=== PATIENT | female | born 1945 | race African-American/Black ===

== ENCOUNTER 2019-04-16 05:47 | Inpatient (IN) | payer OTHER, MEDICARE ==
[2019-04-09 09:31] VITALS: BMI 45.5
[2019-04-16] MEDS ORDERED: TRANEXAMIC ACID 1000 MG/10 ML VIAL IVPUSH ONE (06:32)
[2019-04-16] MEDS ORDERED: CEFAZOLIN 2 GM in DEXTROSE 5%-WATER - 50 ML IVPB ONE (06:32)
[2019-04-16] MEDS ORDERED: CELECOXIB 200 MG CAPSULE PO ONE (06:32)
[2019-04-16] MEDS ORDERED: GABAPENTIN 300 MG CAPSULE (FP) PO ONE (06:32)
[2019-04-16] MEDS ORDERED: oxyCODONE HCL 10 MG SUSTAINED ACTING TABLET PO ONE (06:32)
[2019-04-16] MEDS ORDERED: ceFAZolin SODIUM 1 GM VIAL ONE ×2 (07:11→08:40)
[2019-04-16] MEDS ORDERED: VANCOMYCIN 1,000 MG VIAL (RESTRICTED TO ID ONLY) ONE (07:11)
[2019-04-16] MEDS ORDERED: MIDAZOLAM HCL 2 MG/2 ML SINGLE DOSE VIAL ONE (07:20)
[2019-04-16] MEDS ORDERED: BUPIVACAINE LIPOSOME/PF (EXPAREL) 266 MG/20 ML VIAL ONE (07:21)
[2019-04-16] MEDS ORDERED: MAGNESIUM HYDROX 2400MG/30ML ORAL SUSPENSION 30 ML CUP PO PRN (07:52)
[2019-04-16] MEDS ORDERED: ONDANSETRON 4 MG/2 ML VIAL IVPUSH PRN ×2 (07:52→10:36)
[2019-04-16] MEDS ORDERED: MAG HYDROX/AL HYDROX/SIMETH 30 ML UNIT-DOSE CUP PO PRN (07:52)
--- NOTE | 2019-04-16 07:52 | HP ---
Satellite [facility] - Chief Complaint Chief Complaint: right knee pain - Past Medical History Allergies/Adverse Reactions: Allergies Allergy/AdvReac Type Severity Reaction Status Date / Time No Known Drug Allergies Allergy Verified 04/09/19 09:19 - Current Medications Current Medications: Home Medications Medication Instructions Recorded Atorvastatin Ca [Lipitor] 40 mg PO DAILY 03/17/19 Enalapril Maleate [Vasotec] 40 mg PO BID 03/17/19 Ferrous Sulfate [Feosol] 325 mg PO DAILY 03/17/19 Labetalol HCl 100 mg PO BID 03/17/19 Nifedipine [Nifedipine ER] 90 mg PO DAILY 03/17/19 Aspirin [ASA -] 81 mg PO DAILY 04/09/19 Satellite Physical Exam - Physical Examination Vital Signs: Vital Signs Period Temp Pulse Resp BP Sys/Hoover Pulse Ox Last 24 Hr 98.2 F 60 18 119/58 General Appearance: Well Nourished, Well Developed, Alert & Oriented x3 ENT: Clear Lung: Normal air movement Heart: Regular rate & rhythm Extremities: Other (right knee- + swelling, + ttp ,decr rom, nvi, xrays show grade 4 tricompartmental djd) Neurological: Intact, Alert, Oriented Satellite Impression/Plan - Impression/Plan Impression: right knee djd Operative Procedure: right annemarie tkr Date to be Performed: 04/16/19
[2019-04-16] MEDS ORDERED: BUPIVACAINE HCL/PF 0.5% (5MG/ML) 10 ML VIAL ONE (07:58)
[2019-04-16] MEDS ORDERED: LACTATED RINGERS SOLUTION 1,000 ML IV SCH ×2 (08:00→10:45)
[2019-04-16] MEDS ORDERED: VANCOMYCIN 1,000 MG VIAL (RESTRICTED TO ID ONLY) IVPB ONE (09:56)
[2019-04-16] MEDS ORDERED: TRANEXAMIC ACID 1000 MG/10 ML VIAL ONE (09:57)
[2019-04-16] MEDS ORDERED: ATORVASTATIN CA 40 MG TABLET (FP) PO SCH (10:00)
[2019-04-16] MEDS ORDERED: ENALAPRIL MALEATE 40 MG PO SCH (10:00)
--- NOTE | 2019-04-16 10:26 | OP ---
Operative Note - Note: Operative Date: 04/16/19 (juanita) Pre-Operative Diagnosis: right knee djd Operation: right annemarie tkr Post-Operative Diagnosis: Same as Pre-op Surgeon: Desean Morris Silver Plater: Madan Bravo Anesthesiologist/DX BOARD OPERATOR: Carla Serra Anesthesia: Spinal, Local Specimens Removed: bone fragments Estimated Blood Loss (mls): 150 Operative Report Dictated: Yes
[2019-04-16] MEDS ORDERED: ACETAMINOPHEN 1000 MG/100 ML VIAL (NON FORMULARY) IVPB ONE (10:36)
[2019-04-16] MEDS ORDERED: oxyCODONE HCL 5 MG TABLET PO PRN (10:36)
[2019-04-16] MEDS ORDERED: ONDANSETRON 4 MG/2 ML VIAL ONE (11:10)
[2019-04-16] MEDS ORDERED: ACETAMINOPHEN INJECTION 100 ML IVPB ONE (11:10)
[2019-04-16] MEDS: oxyCODONE HCL 5 MG TABLET PO PRN ×2 (11:30→21:55)
[2019-04-16] MEDS ORDERED: oxyCODONE HCL 5 MG TABLET ONE (11:32)
[2019-04-16] MEDS: CEFAZOLIN 2 GM/D5W 2 GM/50 ML ML IVPB SCH ×2 (16:00→23:57)
[2019-04-16] MEDS: PANTOPRAZOLE 40 MG TABLET (FP) PO SCH (17:35)
[2019-04-16] MEDS: GABAPENTIN 300 MG CAPSULE (FP) PO SCH (21:54)
[2019-04-16] MEDS: ENALAPRIL MALEATE 10 MG TABLET (FP) PO SCH (21:54)
[2019-04-16] MEDS: SENNOSIDES/DOCUSATE COMBO (SENNA PLUS) TABLET (UD) PO SCH (21:54)
[2019-04-16] MEDS: oxyCODONE HCL 10 MG SUSTAINED ACTING TABLET PO SCH (21:55)
[2019-04-16] MEDS: LABETALOL HCL 100 MG TABLET (FP) PO SCH (21:55)
--- NOTE | 2019-04-17 03:47 | SPEC ---
DATE OF OPERATION: 04/16/2019 PREOPERATIVE DIAGNOSIS: Degenerative joint disease, right knee. POSTOPERATIVE DIAGNOSIS: Degenerative joint disease, right knee. PROCEDURE: Right total knee replacement with robotic-assisted navigation (MAKOplasty). SURGICAL ATTENDING: Desean Morris MD SUPPORT TEACHER: PRIYANKA De La Torre ANESTHESIA: Regional and spinal. CLOSURE: A 1 femur, a 1 tibia, a 13 polyethylene, a 29 patella, number 1 Vicryl fascia, 0 and 2-0 subcutaneous, 3-0 Monocryl subcuticular with skin glue for skin, 4-0 undyed Vicryl for pin sites. ESTIMATED BLOOD LOSS: Negligible. TOURNIQUET TIME: Approximately 1/2 hour. COMPLICATIONS: None. CONDITION: To recovery room in stable condition. DESCRIPTION OF OPERATIVE PROCEDURE: Patient was taken to the operating room on April 16, 2019. Regional and general anesthesia was administered by the anesthesiologist. IV Kefzol and TXA were administered by the anesthesiologist. Well-padded pneumatic tourniquet was placed on the proximal thigh. The right lower extremity was prepped and draped in the usual sterile fashion. The leg was exsanguinated with an Esmarch bandage, and tourniquet was inflated to 275 mmHg. A 12- to 15-cm longitudinal midline incision was incised while centered over the patella. The dissection was carried down to the level of the extensor mechanism with sufficient flaps made to adequately perform the procedure. A medial parapatellar arthrotomy was then performed. We made a cuff of tissue on the patella for later closure. The patella was inverted, the knee was flexed up. The fat pad was excised. The subperiosteal dissection was on the anteromedial proximal tibia around towards the direction of the MCL. The ACL and the PCL were transected and debrided. The meniscal remnants of the medial and lateral meniscus were debrided and removed. This allowed the knee to be able to "be brought forward." The checkpoints were malleted into the tibia and into the femur. Two threaded pins were drilled anteroposteriorly proximal to the knee through the previous incision, through the anterior cortex, then just engaging the posterior cortex. To these pins was assembled the femoral navigation array. One handbreadth below the tibial tubercle, 2 stab incisions were used to drill 2 threaded pins in parallel fashion into the tibia, again through the anterior cortex and just engaging the posterior cortex. To these pins were fastened the tibial arrays. The knee was then registered with the navigation device with center of rotation of the hip, medial and lateral malleoli, both checkpoints, and multiple points on both the femur and the tibia to ensure excellent registration. The navigation device was directed off the "top of the bubbles" on both the femur and the tibia. The navigation passed within less than 0.5 mm to plan. The knee was then thoroughly inspected to remove all osteophytes both medially, laterally, and on the femur and the tibia, and whatever osteophytes were available for dissection. The knee was then taken to extension and to flexion and stressed in both varus and valgus to assess flexion gaps. The virtual position of the components on the navigation device were then manipulated to optimize the position and to ensure equal gaps in both flexion and extension, both medially and laterally. The robot was then brought into the field and was registered. The cuts were then made both on the femur and on the tibia as to plan. All osteophytes posteriorly were then removed as well. The gaps were then measured again in flexion and extension to be equal in both flexion and extension and medial and laterally. The femoral notch was then made, as we were doing a posterior stabilizing component, with the appropriate sized box. Trial reduction of the femur achieved excellent [id number] fit. A tibial baseplate of appropriate polyethylene thickness was "floated in the knee." It was ensured to be in the excellent position by navigation devices and was pinned in place. The knee was taken through a range of motion, and found to have excellent stability throughout flexion and extension. The patella was calibrated for thickness and osteotomized down to the appropriate level. The appropriate lollipop was used to drill the lug holes in the patella and the trial button was applied. The knee was taken through a range of motion and found to have excellent tracking of the patella, and patella from full extension to full flexion. Trial components were removed, the keel was punched and drilled, and a sclerotic bone on the tibia was drilled to help with cement interdigitation. The knee was thoroughly irrigated with the pulse antibiotic wildlife protector. The real components were then cemented in using monitored arrangement cement techniques with antibiotic cement, and pressurization and extension. After the cement was hardened, the knee was thoroughly inspected to remove any extra cement. The real polyethylene component was then clipped into place. Range of motion, stability, and tracking were as described earlier. The checkpoints and the pins were removed. The knee was thoroughly irrigated with antibiotic irrigation. Vancomycin powder was placed into the knee for antibiotic prophylaxis. The medial parapatellar arthrotomy was then closed using number 1 Vicryl interrupted suture. After closure of the deep layer, the knee was taken through a range of motion, and found to have excellent stability of the patella with no dislocation and no undue tension on the repair. The subcutaneous was pulse antibiotic irrigated and was then closed with 2-0 Vicryl, 3-0 Monocryl subcuticular with the skin glue for the skin. The distal tibial pin site was irrigated thoroughly as well and then closed with 4-0 undyed Vicryl. A sterile Aquacel dressing was applied, followed by a Crews dressing. Tourniquet was deflated. Total tourniquet time was approximately 75 minutes. No complications. Patient was awakened from anesthesia and transferred to recovery room in stable condition. Postoperative x-rays revealed excellent position of the components. Lucero [id number]
[2019-04-17] MEDS: ASPIRIN 325 MG TABLET PO SCH (07:59)
[2019-04-17] MEDS: oxyCODONE HCL 5 MG TABLET PO PRN (07:59)
[2019-04-17] MEDS ORDERED: ACETAMINOPHEN 325 MG TABLET (FP) PO PRN (08:12)
[2019-04-17 08:37] LABS: HEMATOCRIT 34.7 % (32.4-45.2); HEMOGLOBIN 11.1 GM/dl (10.7-15.3); MCH 27.4 pg (25.7-33.7); MCHC 31.8 g/dl (32.0-36.0); MEAN CELL VOLUME 86.1 fl (80-96); MEAN PLT VOLUME 8.7 fl (7.5-11.1); PLATELET COUNT 268 K/MM3 (134-434); RBC 4.03 M/mm3 (3.60-5.2); RDW 12.8 % (11.6-15.6); WHITE BLOOD COUNT 7.4 K/mm3 (4.0-10.8)
[2019-04-17] MEDS: GABAPENTIN 300 MG CAPSULE (FP) PO SCH ×2 (09:56→21:51)
[2019-04-17] MEDS: FERROUS SO4 325 MG TABLET (FP) PO SCH (09:56)
[2019-04-17] MEDS: SENNOSIDES/DOCUSATE COMBO (SENNA PLUS) TABLET (UD) PO SCH ×2 (09:57→21:51)
[2019-04-17] MEDS: MULTIVITAMINS (DAILY MVI) TABLET (FP) PO SCH (09:57)
[2019-04-17] MEDS: ATORVASTATIN CA 40 MG TABLET (FP) PO SCH (09:57)
[2019-04-17] MEDS: PANTOPRAZOLE 40 MG TABLET (FP) PO SCH (09:57)
--- NOTE | 2019-04-17 10:27 | PN ---
Progress Note, Physician Chief Complaint: CHART AND EVENTS REVIEWED POD #1 RIGHT KNEE DELON DENIES CP/SOB + APPETITE , NO BM TODAY - Current Medication List Current Medications: Active Medications Acetaminophen (Tylenol -) 650 mg PO Q6H PRN PRN Reason: FEVER Al Hydroxide/Mg Hydroxide (Mylanta Oral Suspension -) 30 ml PO Q4H PRN PRN Reason: DYSPEPSIA Aspirin (Asa -) 325 mg PO DAILY@0800 [facility] Last Admin: 04/17/19 07:59 Dose: 325 mg Atorvastatin Calcium (Lipitor -) 40 mg PO DAILY [facility] Last Admin: 04/17/19 09:57 Dose: 40 mg Enalapril Maleate (Vasotec -) 20 mg PO BID [facility] Last Admin: 04/16/19 21:54 Dose: 20 mg Fentanyl (Sublimaze Injection -) 50 mcg IVPUSH [id number] PRN PRN Reason: PAIN-PACU ORDER X 4 DOSES ONLY Last Admin: 04/16/19 11:08 Dose: 50 mcg Ferrous Sulfate (Feosol -) 325 mg PO DAILY [facility] Last Admin: 04/17/19 09:56 Dose: 325 mg Gabapentin (Neurontin -) 300 mg PO BID [facility] Last Admin: 04/17/19 09:56 Dose: 300 mg Lactated Ringer's (Lactated Ringers Solution) 1,000 mls @ 125 mls/hr IV ASDIR [facility] Labetalol HCl (Normodyne -) 100 mg PO BID [facility] Last Admin: 04/16/19 21:55 Dose: 100 mg Magnesium Hydroxide (Milk Of Magnesia -) 30 ml PO PRN PRN PRN Reason: CONSTIPATION Multivitamins/Minerals/Vitamin C (Tab-A-Vit -) 1 tab PO DAILY [facility] Last Admin: 04/17/19 09:57 Dose: 1 tab Nifedipine (Procardia Xl -) 90 mg PO DAILY [facility] Ondansetron HCl (Zofran Injection) 4 mg IVPUSH Q6H PRN PRN Reason: NAUSEA Ondansetron HCl (Zofran Injection) 4 mg IVPUSH Q6H PRN PRN Reason: NAUSEA AND/OR VOMITING Last Admin: 04/16/19 11:10 Dose: 4 mg Oxycodone HCl (Roxicodone -) 10 mg PO Q3H PRN PRN Reason: PAIN LEVEL 6-10 Oxycodone HCl (Roxicodone -) 5 mg PO Q3H PRN PRN Reason: PAIN LEVEL 1-5 Last Admin: 04/17/19 07:59 Dose: 5 mg Oxycodone HCl (Oxycontin -) 10 mg PO BID [facility] Stop: 04/19/19 10:37 Last Admin: 04/16/19 21:55 Dose: 10 mg Pantoprazole Sodium (Protonix -) 40 mg PO DAILY [facility] Last Admin: 04/17/19 09:57 Dose: 40 mg Senna/Docusate Sodium (Pericolace -) 2 tablet PO BID [facility] Last Admin: 04/17/19 09:57 Dose: 2 tablet - Objective Vital Signs: Vital Signs Temperature 98.2 F 04/17/19 09:03 Pulse Rate 74 04/17/19 09:03 Respiratory Rate 18 04/17/19 09:03 Blood Pressure 127/45 L 04/17/19 09:03 O2 Sat by Pulse Oximetry (%) 93 L 04/17/19 06:32 Constitutional: Yes: Mild Distress Eyes: Yes: WNL HENT: Yes: WNL Neck: Yes: WNL Cardiovascular: Yes: Regular Rate and Rhythm Respiratory: Yes: WNL Gastrointestinal: Yes: WNL Genitourinary: Yes: WNL Musculoskeletal: Yes: WNL, Joint Stiffness, Joint Swelling, Muscle Pain Extremities: Yes: Deformity Edema: Yes ...Motor Strength: RLE Psychiatric: Yes: WNL Labs: CBC, BMP 04/17/19 07:24 Problem List - Problems (1) Status post right knee replacement Code(s): Z96.651 - PRESENCE OF RIGHT ARTIFICIAL KNEE JOINT (2) HTN (hypertension) Code(s): I10 - ESSENTIAL (PRIMARY) HYPERTENSION (3) Obesity Code(s): E66.9 - OBESITY, UNSPECIFIED (4) Osteoarthritis Code(s): M19.90 - UNSPECIFIED OSTEOARTHRITIS, UNSPECIFIED SITE (5) Joint disease Code(s): M25.9 - JOINT DISORDER, UNSPECIFIED Assessment/Plan POD #1 RIGHT KNEE DELON PAIN CONTROL ON ASA 325MG DAILY GOT DVT PROPHYLAXIS OOB TO CHAIR CHECK LABS IN AM
[2019-04-17] MEDS: NIFEdipine E.R. 90 MG TABLET (FP) PO SCH (10:53)
[2019-04-17] MEDS: oxyCODONE HCL 10 MG SUSTAINED ACTING TABLET PO SCH ×2 (10:53→21:50)
[2019-04-17] MEDS: LABETALOL HCL 100 MG TABLET (FP) PO SCH ×2 (10:53→21:51)
[2019-04-17] MEDS: ENALAPRIL MALEATE 10 MG TABLET (FP) PO SCH ×2 (10:53→21:51)
[2019-04-18] MEDS: ASPIRIN 325 MG TABLET PO SCH (07:27)
--- NOTE | 2019-04-18 09:17 | DS ---
Physical Examination Vital Signs: Vital Signs Temperature 98.3 F 04/18/19 06:00 Pulse Rate 79 04/18/19 06:00 Respiratory Rate 18 04/18/19 06:00 Blood Pressure 115/43 L 04/18/19 06:00 O2 Sat by Pulse Oximetry (%) 95 04/18/19 01:41 Findings/Remarks: AWAKE ALERT COMFORTABLE Constitutional: Yes: No Distress Eyes: Yes: WNL HENT: Yes: WNL Neck: Yes: WNL Cardiovascular: Yes: Regular Rate and Rhythm Respiratory: Yes: WNL Gastrointestinal: Yes: WNL Musculoskeletal: Yes: Joint Swelling Extremities: Yes: WNL Edema: No Peripheral Pulses WNL: Yes Integumentary: Yes: WNL Wound/Incision: Yes: Dressing Dry and Intact Neurological: Yes: WNL ...Motor Strength: LLE, RLE Psychiatric: Yes: WNL Discharge Summary Reason For Visit: OSTEOARTHRITIS Current Active Problems HTN (hypertension) (Acute) Joint disease (Acute) Obesity (Acute) Osteoarthritis (Acute) Status post right knee replacement (Acute) Procedures: Principal: [facility] KNEE REPLACEMENT Hospital Course: RIGHT KNEE DELON, RECOVERING WELL, CAN F/U OUTPATIENT Condition: Good - Instructions Diet, Activity, Other Instructions: Post-op Instructions-Total Knee Replacement Call the office for a follow-up appointment in 1 week - [phone] Aspirin 325mg daily for 6 weeks. Pain medication was sent into your pharmacy. Apply Graduated Compression Stockings (TEDs) to both lower extremities- remove daily for hygiene ONLY Apply Sequential Compression Device (SCDs) to both Lower extremities remove for PT and hygiene ONLY Apply cold packs to affected area for 15 minutes every 2 hours. Physical Therapist will come to your home for the first 5 days. You will be set up with outpatient PT at your first post-operative visit. Patient may ambulate as tolerated-encourage self care (at least every 2-3 hours while awake) with walker or cane Maintain Aquacel (waterproof) dressing to operative wound (will be removed by surgeon at first office visit) Shower with Aquacel dressing in place-if Aquacel integrity compromised, remove and apply dry sterile dressing and notify Orthopedist. DO NOT SHOWER unless Orthopedists approves without Aquacel dressing CONTACT THE OFFICE FOR ANY CHANGE IN YOUR CONDITION (for example-fever greater than 102 degrees, excessive bleeding from operative site, purulent drainage, severe swelling or pain) GO TO THE EMERGENCY ROOM IF THERE IS A MEDICAL EMERGENCY Knee Precautions: * Keep a rolled towel under affected heel while in bed or chair (to keep knee in extension) * Keep affected leg elevated except during mealtimes * DO NOT PLACE PILLOW UNDER AFFECTED KNEE * If you have any questions, please do not hesitate to call the office - . Referrals: Desean Morris MD [Staff Physician] - Disposition: VNS/HOME HEALTH CARE - Home Medications Comprehensive Discharge Medication List: Ambulatory Orders Atorvastatin Ca [Lipitor] 40 mg PO DAILY 03/17/19 Enalapril Maleate [Vasotec] 40 mg PO BID 03/17/19 Ferrous Sulfate [Feosol] 325 mg PO DAILY 03/17/19 Labetalol HCl 100 mg PO BID 03/17/19 Nifedipine [Nifedipine ER] 90 mg PO DAILY 03/17/19 Aspirin [ASA -] 325 mg PO DAILY@0800 tablet 04/16/19 Oxycodone HCl/Acetaminophen [Percocet 5-325 mg Tablet -] 1 - 2 tab PO Q6H #50 tab MDD 8 04/16/19
[2019-04-18 09:19] LABS: HEMATOCRIT 32.5 % (32.4-45.2); HEMOGLOBIN 10.2 GM/dl (10.7-15.3); MCH 27.8 pg (25.7-33.7); MCHC 31.3 g/dl (32.0-36.0); MEAN CELL VOLUME 88.8 fl (80-96); PLATELET COUNT 262 K/MM3 (134-434); RBC 3.65 M/mm3 (3.60-5.2); WHITE BLOOD COUNT 9.4 K/mm3 (4.0-10.8)
[2019-04-18] MEDS: ATORVASTATIN CA 40 MG TABLET (FP) PO SCH (09:20)
[2019-04-18] MEDS: FERROUS SO4 325 MG TABLET (FP) PO SCH (09:20)
[2019-04-18] MEDS: oxyCODONE HCL 10 MG SUSTAINED ACTING TABLET PO SCH (09:20)
[2019-04-18] MEDS: GABAPENTIN 300 MG CAPSULE (FP) PO SCH (09:20)
[2019-04-18] MEDS: PANTOPRAZOLE 40 MG TABLET (FP) PO SCH (09:20)
[2019-04-18] MEDS: SENNOSIDES/DOCUSATE COMBO (SENNA PLUS) TABLET (UD) PO SCH (09:20)
[2019-04-18] MEDS: MULTIVITAMINS (DAILY MVI) TABLET (FP) PO SCH (09:20)
[2019-04-18 09:32] LABS: CALCIUM 8.3 mg/dl (8.5-10); CREATININE 1.3 mg/dl (0.55-1.3); POTASSIUM 4.7 mmol/L (3.5-5.1)
[2019-04-18] MEDS: NIFEdipine E.R. 90 MG TABLET (FP) PO SCH (14:11)
[2019-04-18] MEDS: ENALAPRIL MALEATE 10 MG TABLET (FP) PO SCH (14:11)
[2019-04-18] MEDS: LABETALOL HCL 100 MG TABLET (FP) PO SCH (14:11)
[2019-04-18 14:36] VITALS: BP 126/59; PULSE 75; TEMP 98.5
--- NOTE | 2019-04-21 16:13 | PATH ---
Surgical Pathology Report Patient Name: SANDRA HENSON Med. Rec. #: [id number] /Age/Gender: 1945 (Age: 73) / F Account: [id number] Location: [facility] MED-SURG Taken: 04/16/2019 Received: 04/16/2019 Reported: 04/21/2019 Physicians: Desean Morris M.D. Specimen(s) Received RIGHT KNEE BONES Clinical History Osteoarthritis right knee Final Diagnosis KNEE BONES, RIGHT, TOTAL HIP REPLACEMENT: DEGENERATIVE JOINT DISEASE. Electronically Signed Kathi Billingsley M.D. Gross Description Received in formalin labeled "right knee bones," is an 11.0 x 8.5 x 2.0 cm aggregate of multiple portions of bone and soft tissue. The tibial plateau measures 6.8 x 4.5 x 0.9 cm. There is a 2.0 cm in greatest dimension area of eburnation present. The remaining articular surfaces are mora-yellow and focally granular. The underlying trabecular bone is yellow and hard. Broomcorn Seeder sections are submitted in one cassette, following decalcification. 04/19/[address] [facility]04/19/2019
== END 2019-04-18 14:47 | disposition home health service (06) | DRG 470 ==
LOC: FM/S 05:47
PROVIDERS: ADMIT Orthopaedic Surgery; ATTEND Orthopaedic Surgery
PROC: 8E0Y0CZ Robotic Assisted Procedure of Lower Extremity, Open Approach (ICD-10-PCS; 2019-04-16)
PROC: 0SRC0J9 Replacement of Right Knee Joint with Synthetic Substitute, Cemented, Open Approach (ICD-10-PCS; principal; 2019-04-16 08:31)
DX: M17.11 Unilateral primary osteoarthritis, right knee (principal); Z68.42 Body mass index [BMI] 45.0-49.9, adult; I10 Essential (primary) hypertension; E66.9 Obesity, unspecified
CPT/HCPCS: 36415; 73560-TC-RT-FY; 80048; 85027; 88304-TC; 88311-TC; 94760; 97116-GP; 97162-GP; J0131

== ENCOUNTER 2019-05-26 13:02 | Observation (INO) | payer OTHER, MEDICARE ==
--- NOTE | 2019-05-26 13:15 | PDOC ---
Rapid Medical Evaluation Chief Complaint: Rash Time Seen by Provider: 05/26/19 13:07 Medical Evaluation: Allergies Allergy/AdvReac Type Severity Reaction Status Date / Time No Known Drug Allergies Allergy Verified 04/09/19 09:19 05/26/19 13:12 I have performed a brief in-person evaluation of this patient. The patient presents with a chief complaint of: s/p RT knee replacement, DM, HTN present with complains of 3 days h/o diffused non-itchy red rash , N/V, dizziness. Denies fever. pt does not know if her body is having reaction to foreign body from knee replacement Pertinent physical exam findings: diffused global erythematous macular rashes all over the body. no RT knee swelling or increased warmth. I have ordered the following: CBC, CMP, PT/PTT The patient will proceed to the ED for further evaluation. Discharge Disposition - Diagnosis Dizziness and giddiness, Rash - Discharge Dispostion Condition at time of disposition: Stable - Referrals Referrals: Clarissa Estrella FNP [Primary Care Provider] - - Patient Instructions - Post Discharge Activity
[2019-05-26 15:13] LABS: BASO % 0.4 % (0-2.0); EOS % 13.7 % (0-4.5); HEMATOCRIT 36.2 % (32.4-45.2); HEMOGLOBIN 11.7 GM/dL (10.7-15.3); LYMPH % 12.8 % (8-40); MCH 26.6 pg (25.7-33.7); MCHC 32.2 g/dl (32.0-36.0); MEAN CELL VOLUME 82.6 fl (80-96); MEAN PLT VOLUME 8.2 fl (7.5-11.1); MONO % 6.7 % (3.8-10.2); NEUT % 66.4 % (42.8-82.8); PLATELET COUNT 316 K/MM3 (134-434); RBC 4.38 M/mm3 (3.60-5.2); RDW 15.3 % (11.6-15.6); WHITE BLOOD COUNT 6.7 K/mm3 (4.0-10.0)
[2019-05-26] MEDS ORDERED: methylPREDNISolone NA SUCC 125 MG/2 ML VIAL IVPB ONE (15:24)
[2019-05-26 15:25] LABS: INR 1.21 (0.83-1.09); PROTHROMBIN TIME (PATIENT) 14.3 SEC (9.7-13.0)
[2019-05-26] MEDS ORDERED: methylPREDNISolone NA SUCC 125 MG/2 ML VIAL ONE (15:37)
[2019-05-26 15:48] LABS: BILIRUBIN,TOTAL 0.6 mg/dL (0.2-1); BLOOD UREA NITROGEN 14.8 mg/dL (7-18); CALCIUM 8.6 mg/dL (8.5-10.1); CREATININE 0.9 mg/dL (0.55-1.3); POTASSIUM 3.7 mmol/L (3.5-5.1); TOT PROT 7.7 g/dl (6.4-8.2)
--- NOTE | 2019-05-26 15:48 | PDOC ---
Documentation entered by Xuan Mendez SCRIBE, acting as scribe for Ravin Richardson MD. Ravin Richardson MD: This documentation has been prepared by the Vanessa saenz Sammi, SCRIBE, under my direction and personally reviewed by me in its entirety. I confirm that the documentation accurately reflects all work, treatment, procedures, and medical decision making performed by me. History of Present Illness - General Chief Complaint: Rash Stated Complaint: Allergic Reaction, dizziness, vomiting Time Seen by Provider: 05/26/19 13:07 History Source: Patient Exam Limitations: No Limitations - History of Present Illness Initial Comments: 05/26/19 15:05 The patient is a 73 year old female, with a significant PMH of HTN and high cholesterol, who presents to the emergency department for evaluation of a rash. Pt reports that she first noticed the rash 3 days ago. Denies itching or pain associated with the rash. Denies any blisters or ulcers. No lesions on her palms /soles/mouth. Pt reports that she has been on the same BP meds for months and denies any new meds. However, the patient states she picked up a refill of her labetalol 3 days ago and noticed it was a different brand from what she normally takes. Pt states that the rash started shortly after taking the new labetalol tablet.s Denies other new medications, foods, detergents, or soaps. Pt denies any lip or tongue swelling, denies N/V. Pt also endorses intermittent nausea for the past month. Denies vomiting. Denies abdominal pain. Denies CP. Denies diarrhea/constipation. Allergies: NKA Past History - Past Medical History Allergies/Adverse Reactions: Allergies Allergy/AdvReac Type Severity Reaction Status Date / Time No Known Drug Allergies Allergy Verified 05/26/19 13:12 Home Medications: Ambulatory Orders Atorvastatin Ca [Lipitor] 40 mg PO DAILY 03/17/19 Enalapril Maleate [Vasotec] 40 mg PO BID 03/17/19 Ferrous Sulfate [Feosol] 325 mg PO DAILY 03/17/19 Labetalol HCl 100 mg PO BID 03/17/19 Nifedipine [Nifedipine ER] 90 mg PO DAILY 03/17/19 Aspirin [ASA -] 325 mg PO DAILY@0800 tablet 04/16/19 Oxycodone HCl/Acetaminophen [Percocet 5-325 mg Tablet -] 1 - 2 tab PO Q6H #50 tab MDD 8 04/16/19 Oxycodone HCl [Oxycodone HCl ER] 10 mg PO BID #28 tab.er.12h MDD 2 04/18/19 Anemia: No Asthma: No Cancer: No Cardiac Disorders: No CVA: No COPD: No CHF: No Dementia: No Diabetes: Yes (pre) GI Disorders: No Disorders: No HTN: Yes Hypercholesterolemia: Yes Liver Disease: No Seizures: No Thyroid Disease: Yes (HYPERTHYROIDISM-05/2018 PARTIAL THYROIDECTOMY) Other medical history: osteoporosis - Surgical History Abdominal Surgery: No Appendectomy: No Cardiac Surgery: No Cholecystectomy: No Lung Surgery: No Neurologic Surgery: No Orthopedic Surgery: No - Suicide/Smoking/Psychosocial Hx Smoking History: Never smoked Information on smoking cessation initiated: No Hx Alcohol Use: No Drug/Substance Use Hx: No Substance Use Type: None Hx Substance Use Treatment: No Review of Systems - Review of Systems Comments:: 05/26/19 15:12 GENERAL/CONSTITUTIONAL: No fever, chills, dizziness HEAD, EYES, EARS, NOSE AND THROAT: No change in vision. No ear pain or discharge. No sore throat. CARDIOVASCULAR: No chest pain, no shortness of breath, no loss of consciousness RESPIRATORY: No cough, wheezing, or hemoptysis. GASTROINTESTINAL: No nausea, vomiting, diarrhea or constipation. GENITOURINARY: No dysuria, frequency, or change in urination. MUSCULOSKELETAL: No joint or muscle swelling or pain. No neck or back pain. SKIN: (+)rash NEUROLOGIC: No vertigo, no change in strength/sensation. *Physical Exam - Vital Signs Last Vital Signs Temp Pulse Resp BP Pulse Ox 98.1 F 106 H 19 119/57 L 99 05/26/19 13:09 05/26/19 13:09 05/26/19 13:09 05/26/19 13:09 05/26/19 13:09 - Physical Exam Comments: 05/26/19 15:59 "GENERAL: Awake, alert, and fully oriented, in no acute distress. HEAD: No signs of trauma EYES: PERRLA, EOMI, sclera anicteric, conjunctiva clear ENT: Auricles normal inspection, hearing grossly normal, nares patent, oropharynx clear without exudates. Moist mucosa NECK: Nontender, no stepoffs, Normal ROM, supple, no lymphadenopathy, JVD, or masses LUNGS: Breath sounds equal, clear to auscultation bilaterally. No wheezes, and no crackles HEART: Regular rate and rhythm, normal S1 and S2, no murmurs, rubs or gallops ABDOMEN: Soft, nontender, normoactive bowel sounds. No guarding, no rebound. No masses EXTREMITIES: Normal range of motion, no edema. No clubbing or cyanosis. No cords, erythema, or tenderness NEUROLOGICAL: Cranial nerves II through XII intact. 5/5 strength and sensation in all extremities, Normal speech, normal gait, normal cerebellar function SKIN: + macular erythematous rash to arms, legs, chest, back, no oral mucosal lesions, no palmar lesions, no ulcers, no pustules, no vesicles ED Treatment Course - LABORATORY CBC & Chemistry Diagram: 05/26/19 14:50 05/26/19 14:50 Medical Decision Making - Medical Decision Making 05/26/19 16:00 73 F with diffuse erythematous macular rash. Possibly drug reaction, as pt just started taking new labetalol tablets. No evidence of anaphylaxis. No evidence of SJS/TENS. Pt also complaining of nausea. Has benign abdomen. Will check labs, as well as trop to r/o ACS. - Labs - EKG - Steroids 05/26/19 16:43 Trop mildly elevated at 0.08 Discussed results with pt, who denies ever having chest pain. However, she does note occasional SOB. Given recent knee surgery and tachycardia, will r/o PE. EKG obtained, shows TWIs and Q waves in anterior leads, no previous EKGs to compare. Pt states that she had an abnormal stress test last month prior to her knee surgery. Subsequently had a cath that showed "a small blockage" but denies having any stents placed. 05/26/19 17:[address] Jacob *DC/Admit/Observation/Transfer Diagnosis at time of Disposition: Dizziness and giddiness, Rash, SOB (shortness of breath) - Discharge Dispostion Condition at time of disposition: Stable Decision to Admit order: Yes - Referrals - Patient Instructions - Post Discharge Activity - Attestations Physician Attestion: 05/26/19 17:38 I, Dr. Ravin Richardson MD, attest that this document has been prepared under my direction and personally reviewed by me in its entirety. I further attest, that it accurately reflects all work, treatment, procedures and medical decision -making performed by me.
[2019-05-26] MEDS ORDERED: SODIUM CHLORIDE 1,000 ML IV STA (16:47)
--- NOTE | 2019-05-26 20:26 | HP ---
Admitting History and Physical - Primary Care Physician PCP: Vidya Jacob - Admission Chief Complaint: sob. rash History of Present Illness: 73 year old female, with a significant PMH of HTN and high cholesterol, who presents to the emergency department for evaluation of a rash. Pt reports that she first noticed the rash 3 days ago. Denies itching or pain associated with the rash. Denies any blisters or ulcers. No lesions on her palms/soles/mouth. Pt reports that she has been on the same BP meds for months and denies any new meds. However, the patient states she picked up a refill of her labetalol 3 days ago and noticed it was a different brand from what she normally takes. Pt states that the rash started shortly after taking the new labetalol tablet.s Denies other new medications, foods, detergents, or soaps. Pt denies any lip or tongue swelling does have SOB lately - Past Medical History Cardiovascular: Yes: HTN, Hyperlipdemia - Smoking History Smoking history: Never smoked - Alcohol/Substance Use Hx Alcohol Use: No Home Medications - Allergies Allergies/Adverse Reactions: Allergies Allergy/AdvReac Type Severity Reaction Status Date / Time No Known Drug Allergies Allergy Verified 05/26/19 13:12 - Home Medications Home Medications: Ambulatory Orders Atorvastatin Ca [Lipitor] 40 mg PO DAILY 03/17/19 Enalapril Maleate [Vasotec] 40 mg PO BID 03/17/19 Ferrous Sulfate [Feosol] 325 mg PO DAILY 03/17/19 Labetalol HCl 100 mg PO BID 03/17/19 Nifedipine [Nifedipine ER] 90 mg PO DAILY 03/17/19 Aspirin [ASA -] 325 mg PO DAILY@0800 tablet 04/16/19 Oxycodone HCl/Acetaminophen [Percocet 5-325 mg Tablet] 1 - 2 tab PO Q6H #50 tab MDD 8 04/16/19 Oxycodone HCl [Oxycodone HCl ER] 10 mg PO BID #28 tab.er.12h MDD 2 04/18/19 Diphenhydramine HCl [Benadryl Capsule -] 25 mg PO Q6H PRN #20 capsule 05/27/19 Physical Examination Vital Signs: Vital Signs Temperature 98.1 F 05/26/19 13:09 Pulse Rate 94 H 08/21/19 19:28 Respiratory Rate 18 05/26/19 19:28 Blood Pressure 134/74 05/26/19 19:28 O2 Sat by Pulse Oximetry (%) 99 05/26/19 19:28 Constitutional: Yes: No Distress HENT: Yes: Atraumatic Neck: Yes: Supple Cardiovascular: Yes: Regular Rate and Rhythm Respiratory: Yes: CTA Bilaterally Gastrointestinal: Yes: Normal Bowel Sounds Extremities: Yes: WNL Edema: No Labs: CBC, BMP 05/26/19 14:50 05/26/19 14:50 Imaging - Results Cat Scan: Report Reviewed Problem List - Problems (1) Rash Assessment/Plan: given steroids prn benadryl Code(s): R21 - RASH AND OTHER NONSPECIFIC SKIN ERUPTION (2) SOB (shortness of breath) Code(s): R06.02 - SHORTNESS OF BREATH (3) HTN (hypertension) Assessment/Plan: on meds monitor Code(s): I10 - ESSENTIAL (PRIMARY) HYPERTENSION (4) Elevated troponin Assessment/Plan: follow up trend demand ischemia cardiology on board Code(s): R74.8 - ABNORMAL LEVELS OF OTHER SERUM ENZYMES Assessment/Plan Laboratory Tests 05/26/19 05/26/19 05/26/19 14:50 14:50 14:50 WBC 6.7 RBC 4.38 Hgb 11.7 Hct 36.2 MCV 82.6 MCH 26.6 MCHC 32.2 RDW 15.3 Plt Count 316 MPV 8.2 Absolute Neuts (auto) 4.4 Neutrophils % 66.4 Lymphocytes % 12.8 Monocytes % 6.7 Eosinophils % 13.7 H Basophils % 0.4 Nucleated RBC % 0 PT with INR INR PTT (Actin FS) 33.0 Sodium 136 Potassium 3.7 Chloride 100 Carbon Dioxide 27 Anion Gap 9 BUN 14.8 Creatinine 0.9 Est GFR (CKD-EPI)AfAm 74.56 Est GFR (CKD-EPI)NonAf 64.33 Random Glucose 114 H Calcium 8.6 Total Bilirubin 0.6 AST 34 ALT 25 Alkaline Phosphatase 115 Creatine Kinase 141 Troponin I 0.08 H Total Protein 7.7 Albumin 3.0 L 05/26/19 05/26/19 14:50 19:15 WBC RBC Hgb Hct MCV MCH MCHC RDW Plt Count MPV Absolute Neuts (auto) Neutrophils % Lymphocytes % Monocytes % Eosinophils % Basophils % Nucleated RBC % PT with INR 14.30 H INR 1.21 H PTT (Actin FS) Sodium Potassium Chloride Carbon Dioxide Anion Gap BUN Creatinine Est GFR (CKD-EPI)AfAm Est GFR (CKD-EPI)NonAf Random Glucose Calcium Total Bilirubin AST ALT Alkaline Phosphatase Creatine Kinase Troponin I 0.07 H Total Protein Albumin Active Medications Generic Name Dose Route Start Last Admin Trade Name Freq PRN Reason Stop Dose Admin Aspirin 325 mg 05/27/19 08:00 Asa - PO DAILY@0800 [facility] Atorvastatin Calcium 40 mg 05/26/19 22:00 Lipitor - PO HS [facility] Heparin Sodium (Porcine) 5,000 unit 05/26/19 22:00 Heparin - SQ BID [facility] Labetalol HCl 100 mg 05/26/19 22:00 Normodyne - PO BID [facility] Nifedipine 90 mg 05/27/19 10:00 Procardia Xl - PO DAILY [facility] Non-Formulary Medication 40 mg 05/26/19 22:00 Enalapril Maleate [Vasotec] PO BID [facility]
[2019-05-26 20:39] VITALS: BMI 42.8
[2019-05-26] MEDS: LABETALOL HCL 100 MG TABLET (FP) PO SCH (21:19)
[2019-05-26] MEDS: ATORVASTATIN CA 40 MG TABLET (FP) PO SCH (21:19)
[2019-05-26] MEDS: HEPARIN NA (PORCINE) 5,000 UNITS/ML 1ML VIAL SQ SCH (21:19)
[2019-05-26] MEDS ORDERED: diphenhydrAMINE HCL 25 MG CAPSULE (FP) PO PRN (21:54)
[2019-05-26] MEDS ORDERED: ENALAPRIL MALEATE 40 MG PO SCH (22:00)
[2019-05-27 08:01] LABS: ALBUMIN 2.6 g/dl (3.4-5.0); BILIRUBIN,TOTAL 0.5 mg/dL (0.2-1); BLOOD UREA NITROGEN 15.6 mg/dL (7-18); CALCIUM 8.7 mg/dL (8.5-10.1); CREATININE 0.9 mg/dL (0.55-1.3); POTASSIUM 3.8 mmol/L (3.5-5.1); TOT PROT 7.6 g/dl (6.4-8.2)
[2019-05-27 08:02] LABS: BASO % 0.4 % (0-2.0); EOS % 0.1 % (0-4.5); HEMATOCRIT 35.8 % (32.4-45.2); HEMOGLOBIN 11.8 GM/dL (10.7-15.3); LYMPH % 11.7 % (8-40); MCH 27.2 pg (25.7-33.7); MEAN CELL VOLUME 82.4 fl (80-96); MEAN PLT VOLUME 9.3 fl (7.5-11.1); MONO % 5.9 % (3.8-10.2); NEUT % 81.9 % (42.8-82.8); PLATELET COUNT 350 K/MM3 (134-434); RBC 4.35 M/mm3 (3.60-5.2); RDW 15.3 % (11.6-15.6); WHITE BLOOD COUNT 7.6 K/mm3 (4.0-10.0)
--- NOTE | 2019-05-27 09:19 | CON.CARD ---
Consult Consult Specialty:: Cardiology Referred by:: Vidya Jacob MD Reason for Consultation:: Demand ischemia - History of Present Illness Chief Complaint: Dyspnea, rash History of Present Illness: 73 year old female, with a significant PMH of HTN, high cholesterol, CAD sees Dr. Jesse Rodriguez presents to the emergency department for evaluation of pruritic maculopapular rash without desquamation after starting different brand of labetolol than usual. Denies other new medications, foods, detergents, or soaps, any lip or tongue swelling. She does report chronic SOB with exertion and underwent recent echo, stress testing at [facility], followed by LHC at [facility] confirming small vessel CAD. She denies angina, near or true syncope, palpitations, orthopnea, PND or LE edema. - Past Medical History Cardio/Vascular: Yes: HTN, Hyperlipdemia - Alcohol/Substance Use Hx Alcohol Use: No - Smoking History Smoking history: Never smoked Home Medications - Allergies Allergies/Adverse Reactions: Allergies Allergy/AdvReac Type Severity Reaction Status Date / Time No Known Drug Allergies Allergy Verified 05/26/19 13:12 - Home Medications Home Medications: Ambulatory Orders Atorvastatin Ca [Lipitor] 40 mg PO DAILY 03/17/19 Enalapril Maleate [Vasotec] 40 mg PO BID 03/17/19 Ferrous Sulfate [Feosol] 325 mg PO DAILY 03/17/19 Labetalol HCl 100 mg PO BID 03/17/19 Nifedipine [Nifedipine ER] 90 mg PO DAILY 03/17/19 Aspirin [ASA -] 325 mg PO DAILY@0800 tablet 04/16/19 Oxycodone HCl/Acetaminophen [Percocet 5-325 mg Tablet -] 1 - 2 tab PO Q6H #50 tab MDD 8 04/16/19 Oxycodone HCl [Oxycodone HCl ER] 10 mg PO BID #28 tab.er.12h MDD 2 04/18/19 Review of Systems - Review of Systems Respiratory: reports: SOB on Exertion Integumentary: reports: Pruritis, Rash Vital Signs: Vital Signs Temperature 98.2 F 05/27/19 05:17 Pulse Rate 90 05/27/19 05:17 Respiratory Rate 20 05/27/19 05:17 Blood Pressure 116/66 05/27/19 05:17 O2 Sat by Pulse Oximetry (%) 99 05/27/19 04:02 Constitutional: Yes: No Distress, Calm Neck: Yes: Supple Respiratory: Yes: Regular, CTA Bilaterally Gastrointestinal: Yes: Normal Bowel Sounds, Soft, Abdomen, Obese Cardiovascular: Yes: Regular Rate and Rhythm JVD: No Carotid Bruit: No Heart Sounds: Yes: S1, S2 Edema: No - Other Data Labs, Other Data: CBC, BMP 05/27/19 06:19 05/27/19 06:19 INR, PTT INR 1.21 (0.83-1.09) H 05/26/19 14:50 Troponin, BNP 05/26/19 05/26/19 05/26/19 14:50 19:15 21:00 Troponin I 0.08 H 0.07 H 0.06 H Troponin, BNP 05/26/19 05/26/19 05/26/19 14:50 19:15 21:00 Troponin I 0.08 H 0.07 H 0.06 H NSR @ 97 PRWP Ejection Fraction %: LVEF > or = 40 % Imaging - Results Cat Scan: Report Reviewed (Chest STA: Mild RUL discoid ATX, no PE) Problem List - Problems (1) Demand ischemia Code(s): I24.8 - OTHER FORMS OF ACUTE ISCHEMIC HEART DISEASE (2) Hypertensive heart disease Code(s): I11.9 - HYPERTENSIVE HEART DISEASE WITHOUT HEART FAILURE Qualifiers: Heart failure presence: without heart failure Qualified Code(s): I11.9 - Hypertensive heart disease without heart failure (3) Coronary artery disease Code(s): I25.10 - ATHSCL HEART DISEASE OF [place] CORONARY ARTERY W/O ANG PCTRS Qualifiers: Coronary Disease-Associated Artery/Lesion type: [place] artery [place] vs. transplanted heart: [place] heart Associated angina: without angina Qualified Code(s): I25.10 - Atherosclerotic heart disease of [place] coronary artery without angina pectoris (4) Rash Code(s): R21 - RASH AND OTHER NONSPECIFIC SKIN ERUPTION (5) SOB (shortness of breath) Code(s): R06.02 - SHORTNESS OF BREATH (6) Status post right knee replacement Code(s): Z96.651 - PRESENCE OF RIGHT ARTIFICIAL KNEE JOINT Assessment/Plan 1. Chronic ALDANA, ruled out for PE 2. CAD demand ischemia 3. Drug rash with new labetolol tablets 4. HTN heart disease 6. s/p right TKR P:1. Trops downtrending, antihistamine 2. Obtain LHC from [facility], echo and stress test from [facility] for review 3. Continue Lipitor 40 qd, Vasotec 40 bid, Procardia XL 90 qd, labetolol 100 bid and assess for clinical response 4. Further recommendations pending study review 5. Thank you for consultative opportunity
[2019-05-27] MEDS: LABETALOL HCL 100 MG TABLET (FP) PO SCH ×2 (11:33→22:16)
[2019-05-27] MEDS: ASPIRIN 325 MG TABLET PO SCH (11:33)
[2019-05-27] MEDS: HEPARIN NA (PORCINE) 5,000 UNITS/ML 1ML VIAL SQ SCH ×2 (11:33→22:17)
[2019-05-27] MEDS: NIFEdipine E.R. 90 MG TABLET (FP) PO SCH (11:33)
--- NOTE | 2019-05-27 11:38 | EKG ---
Test Reason : Blood Pressure : / mmHG Vent. Rate : 097 BPM Atrial Rate : 097 BPM P-R Int : 142 ms QRS Dur : 082 ms QT Int : 338 ms P-R-T Axes : 053 036 025 degrees QTc Int : 429 ms NORMAL SINUS RHYTHM ANTERIOR INFARCT , AGE UNDETERMINED ABNORMAL ECG NO PREVIOUS ECGS AVAILABLE Confirmed by LEIDY ARGUETA, VINCENT ([id number]) on 05/27/2019 11:38:23 AM Referred By: Confirmed By:VINCENT FORBES MD
--- NOTE | 2019-05-27 17:01 | PN ---
Progress Note, Physician History of Present Illness: feeling good - Current Medication List Current Medications: Active Medications Aspirin (Asa -) 325 mg PO DAILY@0800 [facility] Last Admin: 05/27/19 11:33 Dose: 325 mg Atorvastatin Calcium (Lipitor -) 40 mg PO HS [facility] Last Admin: 05/26/19 21:19 Dose: 40 mg Diphenhydramine HCl (Benadryl -) 25 mg PO Q6H PRN PRN Reason: FOR ITCHING Heparin Sodium (Porcine) (Heparin -) 5,000 unit SQ BID [facility] Last Admin: 05/27/19 11:33 Dose: 5,000 unit Labetalol HCl (Normodyne -) 100 mg PO BID [facility] Last Admin: 05/27/19 11:33 Dose: 100 mg Nifedipine (Procardia Xl -) 90 mg PO DAILY [facility] Last Admin: 05/27/19 11:33 Dose: 90 mg Non-Formulary Medication (Enalapril Maleate [Vasotec]) 40 mg PO BID [facility] - Objective Vital Signs: Vital Signs Temperature 98.0 F 05/27/19 14:00 Pulse Rate 84 05/27/19 14:00 Respiratory Rate 18 05/27/19 14:00 Blood Pressure 119/51 L 05/27/19 14:00 O2 Sat by Pulse Oximetry (%) 99 05/27/19 04:02 Constitutional: Yes: No Distress HENT: Yes: Atraumatic Cardiovascular: Yes: Regular Rate and Rhythm Respiratory: Yes: CTA Bilaterally Gastrointestinal: Yes: Normal Bowel Sounds Extremities: Yes: WNL Edema: No Neurological: Yes: Alert, Oriented Labs: CBC, BMP 05/27/19 06:19 05/27/19 06:19 INR, PTT INR 1.21 (0.83-1.09) H 05/26/19 14:50 Problem List - Problems (1) Rash Assessment/Plan: given steroids prn benadryl Code(s): R21 - RASH AND OTHER NONSPECIFIC SKIN ERUPTION (2) SOB (shortness of breath) Code(s): R06.02 - SHORTNESS OF BREATH (3) HTN (hypertension) Assessment/Plan: on meds monitor Code(s): I10 - ESSENTIAL (PRIMARY) HYPERTENSION (4) Elevated troponin Assessment/Plan: follow up trend demand ischemia cardiology on board Code(s): R74.8 - ABNORMAL LEVELS OF OTHER SERUM ENZYMES Assessment/Plan dc in am if cleared by cardiology
[2019-05-27] MEDS ORDERED: ACETAMINOPHEN 325 MG TABLET (FP) ONE (22:06)
[2019-05-27] MEDS: ATORVASTATIN CA 40 MG TABLET (FP) PO SCH (22:16)
[2019-05-28] MEDS: LABETALOL HCL 100 MG TABLET (FP) PO SCH (09:22)
[2019-05-28] MEDS: NIFEdipine E.R. 90 MG TABLET (FP) PO SCH (09:22)
[2019-05-28] MEDS: ASPIRIN 325 MG TABLET PO SCH (09:22)
[2019-05-28] MEDS: HEPARIN NA (PORCINE) 5,000 UNITS/ML 1ML VIAL SQ SCH (09:22)
--- NOTE | 2019-05-28 10:42 | PN ---
Progress Note, Physician History of Present Illness: Chronic SOB with exertion denies chest pain, review of LHC from [facility] confirms small vessel disease with preserved LV fxn. Pruritic rash resolving. - Current Medication List Current Medications: Active Medications Aspirin (Asa -) 325 mg PO DAILY@0800 [facility] Last Admin: 05/28/19 09:22 Dose: 325 mg Atorvastatin Calcium (Lipitor -) 40 mg PO HS [facility] Last Admin: 05/27/19 22:16 Dose: 40 mg Diphenhydramine HCl (Benadryl -) 25 mg PO Q6H PRN PRN Reason: FOR ITCHING Heparin Sodium (Porcine) (Heparin -) 5,000 unit SQ BID [facility] Last Admin: 05/28/19 09:22 Dose: 5,000 unit Labetalol HCl (Normodyne -) 100 mg PO BID [facility] Last Admin: 05/28/19 09:22 Dose: 100 mg Nifedipine (Procardia Xl -) 90 mg PO DAILY [facility] Last Admin: 05/28/19 09:22 Dose: 90 mg Non-Formulary Medication (Enalapril Maleate [Vasotec]) 40 mg PO BID [facility] - Objective Vital Signs: Vital Signs Temperature 98 F 05/28/19 06:00 Pulse Rate 83 05/28/19 06:00 Respiratory Rate 17 05/28/19 06:00 Blood Pressure 127/53 L 05/28/19 06:00 O2 Sat by Pulse Oximetry (%) 99 05/28/19 04:00 Constitutional: Yes: No Distress Cardiovascular: Yes: Regular Rate and Rhythm Respiratory: Yes: Regular, CTA Bilaterally Gastrointestinal: Yes: Normal Bowel Sounds, Soft Edema: No Labs: CBC, BMP 05/27/19 06:19 05/27/19 06:19 INR, PTT INR 1.21 (0.83-1.09) H 05/26/19 14:50 - ....Imaging EKG: Report Reviewed (Tele: NSR) Problem List - Problems (1) Demand ischemia Code(s): I24.8 - OTHER FORMS OF ACUTE ISCHEMIC HEART DISEASE (2) Hypertensive heart disease Code(s): I11.9 - HYPERTENSIVE HEART DISEASE WITHOUT HEART FAILURE Qualifiers: Heart failure presence: without heart failure Qualified Code(s): I11.9 - Hypertensive heart disease without heart failure (3) Coronary artery disease Code(s): I25.10 - ATHSCL HEART DISEASE OF [place] CORONARY ARTERY W/O ANG PCTRS Qualifiers: Coronary Disease-Associated Artery/Lesion type: [place] artery [place] vs. transplanted heart: [place] heart Associated angina: without angina Qualified Code(s): I25.10 - Atherosclerotic heart disease of [place] coronary artery without angina pectoris (4) Rash Code(s): R21 - RASH AND OTHER NONSPECIFIC SKIN ERUPTION (5) SOB (shortness of breath) Code(s): R06.02 - SHORTNESS OF BREATH (6) Status post right knee replacement Code(s): Z96.651 - PRESENCE OF RIGHT ARTIFICIAL KNEE JOINT Assessment/Plan 03/26/2019 LHC: mid LAD 20%, D2 100% small vesssel, prox LCx 10%, mid RCA 20%, LVEF 55%, no MR, normal LVEDP 12 mmHg 1. Chronic ALDANA, ruled out for PE 2. Small vessel CAD with demand ischemia 3. Drug rash with new labetolol tablets 4. HTN heart disease 5. s/p right TKR P:1. Trops downtrending, antihistamine as needed 2. Reviewed LHC results from [facility] with patient 3. Continue ASA 325 qd, Lipitor 40 qd, Vasotec 40 bid, Procardia XL 90 qd, labetolol 100 bid and assess for clinical response 4. 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 Jesse Rodriguez
--- NOTE | 2019-05-28 11:44 | DS ---
Physical Examination Vital Signs: Vital Signs Temperature 98 F 05/28/19 06:00 Pulse Rate 83 05/28/19 06:00 Respiratory Rate 17 05/28/19 06:00 Blood Pressure 127/53 L 05/28/19 06:00 O2 Sat by Pulse Oximetry (%) 99 05/28/19 04:00 Constitutional: Yes: No Distress HENT: Yes: Atraumatic Neck: Yes: Supple Cardiovascular: Yes: Regular Rate and Rhythm Respiratory: Yes: CTA Bilaterally Gastrointestinal: Yes: Normal Bowel Sounds Extremities: Yes: WNL Edema: No Neurological: Yes: Alert, Oriented Labs: CBC, BMP 05/27/19 06:19 05/27/19 06:19 Discharge Summary Reason For Visit: SOB Current Active Problems Coronary artery disease (Acute) Demand ischemia (Acute) Dizziness and giddiness (Acute) Elevated troponin (Acute) Hypertensive heart disease (Acute) Rash (Acute) SOB (shortness of breath) (Acute) Condition: Stable - Instructions Disposition: HOME - Home Medications Comprehensive Discharge Medication List: Ambulatory Orders Atorvastatin Ca [Lipitor] 40 mg PO DAILY 03/17/19 Enalapril Maleate [Vasotec] 40 mg PO BID 03/17/19 Ferrous Sulfate [Feosol] 325 mg PO DAILY 03/17/19 Labetalol HCl 100 mg PO BID 03/17/19 Nifedipine [Nifedipine ER] 90 mg PO DAILY 03/17/19 Aspirin [ASA -] 325 mg PO DAILY@0800 tablet 04/16/19 Oxycodone HCl/Acetaminophen [Percocet 5-325 mg Tablet] 1 - 2 tab PO Q6H #50 tab MDD 8 04/16/19 Oxycodone HCl [Oxycodone HCl ER] 10 mg PO BID #28 tab.er.12h MDD 2 04/18/19 Diphenhydramine HCl [Benadryl Capsule -] 25 mg PO Q6H PRN #20 capsule 05/27/19 cleared by cardiolopgy to be dc
[2019-05-28 12:31] VITALS: BP 117/56; PULSE 78; TEMP 97.9
== END 2019-05-28 13:09 | disposition home or self-care (01) ==
LOC: JERFT 13:02 → JER 13:02 → JERBED 17:38 → J4W 20:06
PROVIDERS: ADMIT Internal Medicine; ATTEND Internal Medicine
PROC: 3E0333Z Introduction of Anti-inflammatory into Peripheral Vein, Percutaneous Approach (ICD-10-PCS; principal; 2019-05-26)
PROC: 3E0337Z Introduction of Electrolytic and Water Balance Substance into Peripheral Vein, Percutaneous Approach (ICD-10-PCS; 2019-05-26)
PROC: 3E013GC Introduction of Other Therapeutic Substance into Subcutaneous Tissue, Percutaneous Approach (ICD-10-PCS; 2019-05-26)
DX: R06.02 Shortness of breath (principal); R42 Dizziness and giddiness; R21 Rash and other nonspecific skin eruption; R74.8 Abnormal levels of other serum enzymes; I24.8 Other forms of acute ischemic heart disease; I11.9 Hypertensive heart disease without heart failure; I25.10 Atherosclerotic heart disease of native coronary artery without angina pectoris; E78.5 Hyperlipidemia, unspecified; E89.0 Postprocedural hypothyroidism; R73.03 Prediabetes; Z96.651 Presence of right artificial knee joint; Z79.82 Long term (current) use of aspirin
CPT/HCPCS: 36415; 71275-TC; 80053; 82550; 84484; 85025; 85610; 85730; 93005; 93010; 96361; 96372; 96374; 99284-25; G0378; J1644; J7030

== ENCOUNTER 2022-06-17 10:09 | Emergency (ER) | payer BC, MEDICARE, OTHER ==
[2022-06-17 10:14] VITALS: BP 154/64; PULSE 77; RESP 18; TEMP 97.7; BMI 38.7
[2022-06-17 11:40] LABS: EPI CELLS 29 /uL (0-25.1); HYALINE CASTS 1 /uL (0-3.1); URINE APPEARANCE CLEAR; URINE BACTERIA 87 /uL (0-1359); URINE BILIRUBIN NEGATIVE (NEGATIVE); URINE COLOR YELLOW; URINE GLUCOSE (UA) NEGATIVE (NEGATIVE); URINE KETONE NEGATIVE (NEGATIVE); URINE LEUK ESTERASE 1+ (NEGATIVE); URINE NITRITE NEGATIVE (NEGATIVE); URINE PROTEIN NEGATIVE (NEGATIVE); URINE RBC 13 /uL (0-23.9); URINE UROBILINOGEN 0.2 mg/dL (0.2-1.0); URINE WBC 26 /uL (0-25.8)
[2022-06-17 14:04] LABS: BASO % 0.7 % (0-2.0); EOS % 1.1 % (0-4.5); HEMATOCRIT 47.4 % (32.4-45.2); HEMOGLOBIN 15.2 GM/dL (10.7-15.3); LYMPH % 39.1 % (8-40); MCH 27.2 pg (25.7-33.7); MCHC 32.1 g/dl (32.0-36.0); MEAN CELL VOLUME 84.9 fl (80-96); MEAN PLT VOLUME 8.5 fl (7.5-11.1); MONO % 6.9 % (3.8-10.2); NEUT % 52.2 % (42.8-82.8); PLATELET COUNT 309 10^3/uL (134-434); RBC 5.59 M/mm3 (3.60-5.2); RDW 15.4 % (11.6-15.6); WHITE BLOOD COUNT 4.4 K/mm3 (4.0-10.0)
[2022-06-17 14:17] LABS: CALCIUM 9.8 mg/dL (8.5-10.1)
[2022-06-17 14:18] LABS: ALBUMIN 3.8 g/dl (3.4-5.0); BLOOD UREA NITROGEN 15.8 mg/dL (7-18)
[2022-06-17 14:20] LABS: CREATININE 0.7 mg/dL (0.55-1.3)
[2022-06-17 14:22] LABS: TOT PROT 9.2 g/dl (6.4-8.2)
[2022-06-17 14:43] LABS: BILIRUBIN,TOTAL 0.4 mg/dL (0.2-1)
== END 2022-06-17 15:18 | disposition home or self-care (01) ==
LOC: JER 10:09
DX: R30.0 Dysuria (principal)
CPT/HCPCS: 36415; 80053; 81003; 85025; 87086; 99283-25